=== PATIENT | male | born 1955 | race African-American/Black ===

== ENCOUNTER 2020-12-30 16:56 | Inpatient (IN) | payer OTHER ==
[~2020-12-30] VITALS: Ht 182.9 cm; Wt 113.4 kg
--- NOTE | ~2020-12-30 | P ---
[facility] [place] [address] PROCEDURE REPORT Name: VINCENT ANDERSON Room #: 441-P [facility] IN M.R.#: [id number] Admission: 12/30/20 Attend Phys: Cipriano Gorman MD Discharge: Date of : 57 Report #: [id number] THIS REPORT FOR: cc: Zenon Johnson MD, Ronald J. MD McElhinney, Christian C. MD ~ DOC #: [id number] cc: MD Alex Pérez MD DATE OF SERVICE: 01/02/2021 PROCEDURE PERFORMED: Colonoscopy with biopsies. HISTORY OF PRESENT ILLNESS: The patient is a 65-year-old male with a history of increasing rectal pain. He has had mild rectal pain for several years. This has become more severe. He has also noted some bright red blood per rectum. He underwent a colonoscopy apparently 2017 in a different facility. I do not have a copy of that report. 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 Also, history of prostate cancer treated with radiation in the past. This was several years ago. CT scan of the abdomen and pelvis on 12/30/2020 shows moderate to severe proctitis with mucosal edema of the rectum. Several mildly enlarged perirectal lymph nodes of developed probably reactive inflamed rectal neoplasm as possible, mild concentric urinary bladder wall thickening, also a heterogeneous low attenuating appearance near the uncinate process of the pancreas 2.0 cm in size. Plan is for colonoscopy. DESCRIPTION OF PROCEDURE: The risks and benefits of the procedure were explained to the patient, those risks including but not limited to bleeding, perforation and the risk of sedation. He understood these risks and gave informed consent. Sedation was given using propofol and ketamine per anesthesia. Next, a digital rectal exam was abnormal and that the rectal mucosa was firm and possible mass was noted. Next, using a standard Olympus colonoscope, the scope was placed in the patient's anus and advanced under direct vision to the cecum. The overall prep was good. The scope was advanced into the right colon, at which point a surgical anastomosis was noted. This was well healed and widely patent. The ascending, transverse, and descending colon were normal. In the sigmoid colon, a 4 mm sessile polyp was noted. This was removed with cold forceps, otherwise normal. In the distal rectum, a large ulcer/possible mass was noted. It was approximately 2-3 cm in diameter. In the sigmoid colon, also a 1 cm lipoma was noted. There was no active bleeding, but the tissue was friable. Multiple biopsies of the ulcer edge were obtained. The lesion was firm. It did not involve the dentate line. At this point, the scope was then withdrawn and the procedure terminated. The patient tolerated the procedure well. [address] [address] PROCEDURE REPORT Name: VINCENT ANDERSON Room #: 441-P [facility] IN .R.#: [id number] Admission: 12/30/20 Attend Phys: Cipriano Gorman MD Discharge: Date of : 57 Report #: [id number] IMPRESSION: 1. Large distal rectal mass/ulcer biopsies were obtained to rule out the possibility of malignancy. Also, consider solitary rectal ulcer syndrome. 2. Small colonic polyp. RECOMMENDATIONS: 1. Await biopsy results. 2. If biopsies are negative for malignancy, may consider rectal suppository with steroids or mesalamine in the near future. Thank you for allowing me to participate in his care. Alex Doran MD CCM/ROMINA By: [id number] Alex Doran MD /nt
[~2020-12-30 16:56] MED LIST: POTASSIUM20 PO
[2020-12-30 17:14] VITALS: BP 159/93
[2020-12-30] MEDS ORDERED: TADALAFIL20 MG PO (18:04)
[2020-12-30] MEDS ORDERED: VENLAFAXINE HCL75 MG PO (18:06)
[2020-12-30 18:17] LABS: ABSOLUTE NEUTROPHILS 7.2 thou/uL (1.4-8.2); BASOPHILS 0.6 % (0.0-2.0); EOSINOPHILS 0.5 % (0.0-3.0); LYMPHOCYTES 9.2 % (24.0-44.0); MCH 28.9 pg (26.0-34.0); MCHC 32.5 g/dL (28.0-37.0); MCV 88.8 fL (80.0-100.0); MONOCYTES 6.2 % (1.0-8.0); PLATELET COUNT 300 thou/uL (150-400); POLYS 83.5 % (36.0-66.0); RBC 4.16 mil/uL (4.50-6.00); RDW 15.1 % (10.5-14.5); WBC 8.6 thou/uL (4.0-11.0)
[2020-12-30 18:30] LABS: CALCIUM 8.5 mg/dL (8.5-10.1); CREATININE 0.9 mg/dL (0.7-1.3); POTASSIUM 3.4 mmol/L (3.5-5.1)
[2020-12-30 18:36] LABS: TOTAL BILIRUBIN 0.2 mg/dL (0.2-1.0)
[2020-12-30 19:10] LABS: URINE BILIRUBIN NEGATIVE (Negative); URINE BLOOD NEGATIVE (Negative); URINE CLARITY CLEAR; URINE COLOR YELLOW; URINE GLUCOSE-RANDOM* NEGATIVE (Negative); URINE KETONES TRACE (Negative); URINE LEUKOCYTES-REFLEX NEGATIVE (Negative); URINE NITRITE-REFLEX NEGATIVE (Negative); URINE PROTEIN (DIPSTICK) TRACE (Negative); URINE SPECIFIC GRAVITY 1.025 (1.005-1.035); URINE UROBILINOGEN 0.2 E.U./dl (0.2-1.0)
[2020-12-30 21:53] VITALS: BP 163/79
[2020-12-30 23:40] VITALS: BP 147/74
[2020-12-30 23:45] VITALS: BP 145/92
--- NOTE | 2020-12-31 00:18 | NUR ---
PT ADMITTED TO THE UNIT AT 2350. PT IS A/O X4 AND IS UP AD CHIQUITA. ROOM AIR. VSS. AFEBRILE. C/O PAIN TO RECTUM. PRN PAIN MEDICATION GIVEN DIRECTED. ADMISSION COMPLETED. PT EDUCATED ON USE OF CALL LIGHT. IS PLEASANT AND COOPERATIVE. WILL CONTINUE TO [facility].
[2020-12-31 04:10] VITALS: BP 142/89
[2020-12-31 07:30] VITALS: BP 123/73
--- NOTE | 2020-12-31 09:55 | NUR ---
Assumed care of pt at 0700. Pt a&ox4. C/o pain in rectal area. Prn pain medications administered. Diet changed to soft/fiber restricted. Call light within reach. Pt calls appropriately. Will continue to monitor.
[2020-12-31 16:00] VITALS: BP 127/84
[2020-12-31 20:00] VITALS: BP 130/83
--- NOTE | 2021-01-01 04:00 | NUR ---
PT A/O X4 AND IS UP AD CHIQUITA. C/O PAIN TO RECTUM. PRN PAIN MEDICATION GIVEN. FEBRILE. PRN TYLENOL GIVEN DIRECTED. AT THIS TIME PT IS AFEBRILE AND IS LYING IN HIS BED AND APPEARS TO BE SLEEPING WITH EYES CLOSED. MEDICATIONS GIVEN PER MAR. CALL LIGHT IS WITHIN REACH.
[2021-01-01 07:25] VITALS: BP 133/88
--- NOTE | 2021-01-01 09:26 | NUR ---
Assumed pt care this am. Pt is alert & oriented x4. Pt has iv site on l hand. pt is up ad lisandro and has bathroom priviledge. Pt is on clear liquid diet and will be NPO at midnight for colonoscopy tomorrow. Pt is on room air. Pt rated pain 7/10 on colon and groin area. Given pain medication as per pt request. No c/o of nausea and vomiting this am. No fever noted. Pt on the bed watching tv, bed on the lowest position, side rails up, call light within reach. Will continue to monitor pt. Follow poc.
[2021-01-01 15:45] VITALS: BP 143/90
[2021-01-01 19:06] VITALS: BP 141/93
[2021-01-01 22:18] VITALS: BP 141/93
--- NOTE | 2021-01-02 02:04 | NUR ---
UPON SHIFT ASSESSMENT, PT AOX4. PT REPORTS 7/10 RECTAL PAIN. PT RECEIVING PRN PO NORCO Q4HR WITH PRN PO APAP Q4HR AND PRN IV MORPHINE Q2HR AVAILABLE. PT DENIES SOB WHILE ON ROOM AIR. PT REPORTS ANXIETY RELATED TO PROCEDURE ON SATURDAY, REVIEWED HOME MEDICATIONS WITH PT. ONCALL DRYWALL TAPER HELPER NOTIFIED, EMAR UPDATED. PT TOLERATING PO INTAKE OF FLUIDS AND CLEAR LIQUID DIET WITHOUT ISSUE, REMAINS NPO AT MIDNIGHT. PT WITHOUT NAUSEA OR EMESIS. PT AMBULATING INDEPENDENTLY IN ROOM AND TO BATHROOM, RESTING IN BED OTHERWISE. FREQUENT REPOSITIONING ENCOURAGED WHILE IN BED, PT NOTED TO SHIFT INDEPENDENTLY. PT REPORTS NUMBNESS IN LLE, CAPILLARY REFILL LESS THAN 3SEC, PERIPHERAL PULSES PALPABLE IN ALL EXTREMITIES. PT ENCOURAGED TO NOTIFY STAFF FOR ALL NEEDS, CALL LIGHT WITHIN REACH, BED LOCKED IN LOWEST POSITION, FREQUENT MONITORING WILL CONTINUE.
[2021-01-02 04:45] VITALS: BP 144/95
[2021-01-02 07:42] VITALS: BP 143/90
--- NOTE | 2021-01-02 13:20 | NUR ---
ASSESSMENT: CM REVIEWED CHART AND MET WITH PATIENT AT THE BEDSIDE. PT IS ALERT AND ORIENTED X4. PT IS TO HAVE A COLONSCOPY TODAY. PT REPORTS THAT HE LIVES AT HOME WITH HIS IN AN APT. PT REPORTS HAVING ABOUT 14 STEPS WITH HANDRAILS TO THE APT. PT STATES HE IS FULLY INDEPENDENT WITH ADLS AND AMBULATION. PT REPORTS HE DOES HAVE A CANE AND WALKER HE USES IF NEEDED. PT STATES HE HAS NO HX OF HH OR SNF. CM DISCUSSED ROLE. PT DOES NOT ANTICIPATE HAVING ANY NEEDS FROM CM PRIOR TO DISCHARGE.
[2021-01-02 15:22] VITALS: BP 143/91
[2021-01-02 19:23] VITALS: BP 135/94
--- NOTE | 2021-01-02 19:30 | NUR ---
Patient alert and orinted x4, on room air, up ad lisandro, went down for coloscopy, could dischare after dinner if tolerated diet well, patient wanted to go home. After dinner patient isn't wanting to discharge and not feeling well. Would like to stay and see the physician tomorrow. Call light with in reach. Will continue to monitor.
--- NOTE | 2021-01-03 03:15 | NUR ---
PT IS A/O X4 AND IS UP AD CHIQUITA. VSS AFEBRILE. DENIES C/O PAIN TO ABDOMEN THIS SHIFT BUT DOES C/O OF NAUSEA. OFFERED TO PT PRN NAUSEA MEDICATION. PT DECLINED. C/O SORE THROAT FOLLOWING PROCEDURE DURING THE DAY. NOTIFIED MANAGER OF CUSTOMER BILLING. ORDERS GIVEN. MEDICATIONS GIVEN PER SEP. CALL LIGHT IS WITHIN REACH. CALLS OUT APPROPRIATELY. WILL CONTINUE TO MONITOR.
[2021-01-03 04:25] VITALS: BP 150/96
[2021-01-03 08:11] VITALS: BP 134/87
[2021-01-03] MEDS ORDERED: COLACE100 MG PO (09:21)
[2021-01-03] MEDS ORDERED: ULTRAM50 MG PO (09:21)
[2021-01-03 10:30] VITALS: BP 134/87
--- NOTE | 2021-01-03 11:25 | NUR ---
RN went over all discharge paper work and education, all questions answered at this time, IV out, and will be wheeled out in wheelchair.
--- NOTE | 2021-01-03 13:11 | NUR ---
ON-GOING ASSESSMENT: CM REVIEWED CHART. PT HAS ORDERS TO DISCHARGE HOME TODAY. PT HAS NO NEEDS FROM CM.
--- NOTE | 2021-01-06 19:07 | PATH ---
[facility] [place] [address] PATHOLOGY RPT PROCEDURE Name: VIC SALDIVAR Rere Room #: 441-P [facility] IN .R.#: [id number] Admission: 12/30/20 Date of : 57 Discharge: 01/03/21 Report #: [id number] Path Case #: [id number] [facility] Accession Number: [id number] . 01 Material submitted: . PART A: sigmoid colon - SIGMOID COLON POLYP PART B: rectum - RECTAL ULCER . 01 Clinical history: . COLONOSCOPY PELVIC PAIN,RECTAL BLEEDING ACUTE PROCTITIS,ABD PAIN . 02 Diagnosis: A. Polyp, sigmoid colon polyp, endoscopic biopsy: - Tubular adenoma admixed with hyperplastic changes. - Negative for high-grade dysplasia. . B. 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 (IUV:pit; 01/06/2021) QTP 01/06/2021 1537 Local . 02 Comment: Properly controlled immunohistochemical stains are performed on block B1. The tumor shows granular reactivity with synaptophysin, and no reactivity with chromogranin as well as CK20. CD45 shows membranous reactivity within the lymphocytes amongst the other fragments with chronic inflammation. Ki-67 shows markedly high proliferative activity of approximately 70% within the tumor cells. 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 . Dr. Ann Patiño has seen tax representative slides of this case and concurs with the diagnosis. Findings of this case are communicated to Dr. Gui Doran in the afternoon of 01/05/2021 and 01/06/2021. (IUV:pit; 01/06/2021) . 02 Electronically signed: . Nicole Rodriguez MD, Pathologist NPI- [id number] . 01 Gross description: . A. The specimen is received in formalin, labeled "Vic Saldivar, sigmoid colon polyp". Received are three segments of pale guerrero tissue ranging in size from 0.1-0.4 cm in maximum dimensions. The specimen is submitted entirely in [place] [address] PATHOLOGY RPT PROCEDURE Name: VIC SALDIVAR Rere Room #: 441-P [facility] IN M.R.#: [id number] Admission: 12/30/20 Date of : 57 Discharge: 01/03/21 Report #: [id number] Path Case #: [id number] . B. The specimen is received in formalin, labeled "Vic Saldivar, rectal ulcer biopsy". Received are multiple segments of pale guerrero tissue ranging in size from 0.1-0.4 cm in maximum dimensions. The specimen is submitted entirely in cassette B1. (CAA; 01/04/2021) QAC/QAC 01/04/2021 1317 Local . 02 Pathologist provided ICD-10: C75.9, C7A.8, D12.5, K62.6 . 02 CPT . 994485, [id number], [id number], [id number], [id number] Specimen Comment: A courtesy copy of this report has been sent to [phone], [phone]- Specimen Comment: [phone], Specimen Comment: Report sent to , DR MCBRIDE / DR LEON Performed at: [address] [facility], [place] [id number] MD Den Palacios MD Phone: [phone] Performed at: [address] [id number] MD Nicole Rodriguez MD Phone: [phone]
== END 2021-01-03 13:22 | disposition home or self-care (01) | DRG 394 ==
LOC: ER 16:56 → 4S 20:16 → EROBS 20:16 → 4S 23:32
PROVIDERS: Nurse Practitioner Family; ADMIT Hospitalist; ATTEND Hospitalist
PROC: 0DBN8ZZ Excision of Sigmoid Colon, Via Natural or Artificial Opening Endoscopic (ICD-10-PCS; principal; 2021-01-02)
PROC: 0DBP8ZX Excision of Rectum, Via Natural or Artificial Opening Endoscopic, Diagnostic (ICD-10-PCS; 2021-01-02)
DX: K62.6 Ulcer of anus and rectum (principal); K62.5 Hemorrhage of anus and rectum; E44.1 Mild protein-calorie malnutrition; R65.10 Systemic inflammatory response syndrome (SIRS) of non-infectious origin without acute organ dysfunction; K62.89 Other specified diseases of anus and rectum; G47.33 Obstructive sleep apnea (adult) (pediatric); K59.00 Constipation, unspecified; E66.9 Obesity, unspecified; D12.5 Benign neoplasm of sigmoid colon; I10 Essential (primary) hypertension; Z85.46 Personal history of malignant neoplasm of prostate; Z85.89 Personal history of malignant neoplasm of other organs and systems; Z90.49 Acquired absence of other specified parts of digestive tract; Z79.899 Other long term (current) drug therapy; Z88.8 Allergy status to other drugs, medicaments and biological substances; Z87.891 Personal history of nicotine dependence; Z68.33 Body mass index [BMI] 33.0-33.9, adult
CPT/HCPCS: 10195; 62110; 62900; 70005

== ENCOUNTER 2021-03-15 09:07 | Emergency (ER) | payer MEDICARE ==
[~2021-03-15] VITALS: Ht 182.9 cm; Wt 109.8 kg
[~2021-03-15 09:07] MED LIST changes: +COLACE100 MG PO; +TADALAFIL20 MG PO; +ULTRAM50 MG PO; +VENLAFAXINE HCL75 MG PO
[2021-03-15 10:07] LABS: HEMATOCRIT 36.3 % (42.0-52.0); HEMOGLOBIN 11.5 gm/dL (14.0-18.0); MCH 27.8 pg (26.0-34.0); MCHC 31.7 g/dL (28.0-37.0); MCV 87.8 fL (80.0-100.0); PLATELET COUNT 386 thou/uL (150-400); RBC 4.13 mil/uL (4.50-6.00); RDW 16.8 % (10.5-14.5); WBC 7.2 thou/uL (4.0-11.0)
[2021-03-15 10:13] LABS: URINE BILIRUBIN NEGATIVE (Negative); URINE BLOOD NEGATIVE (Negative); URINE CLARITY CLEAR; URINE COLOR YELLOW; URINE GLUCOSE-RANDOM* NEGATIVE (Negative); URINE KETONES NEGATIVE (Negative); URINE LEUKOCYTES-REFLEX NEGATIVE (Negative); URINE NITRITE-REFLEX NEGATIVE (Negative); URINE PROTEIN (DIPSTICK) NEGATIVE (Negative); URINE SPECIFIC GRAVITY 1.015 (1.005-1.035); URINE UROBILINOGEN 0.2 E.U./dl (0.2-1.0)
[2021-03-15 10:19] LABS: CALCIUM 8.6 mg/dL (8.5-10.1); CREATININE 0.9 mg/dL (0.7-1.3); POTASSIUM 4.4 mmol/L (3.5-5.1)
[2021-03-15 10:23] LABS: ALBUMIN 3.3 g/dL (3.4-5.0); TOTAL BILIRUBIN 0.2 mg/dL (0.2-1.0)
[2021-03-15 10:28] LABS: ABSOLUTE NEUTROPHILS 4.9 thou/uL (1.4-8.2)
[2021-03-15 10:29] LABS: ANISOCYTOSIS 1+; PLATELET ESTIMATE NORMAL
[2021-03-15 11:30] VITALS: BP 129/90
== END 2021-03-15 11:30 | disposition home or self-care (01) ==
LOC: ER 09:07
PROVIDERS: Emergency Medicine
DX: R10.813 Right lower quadrant abdominal tenderness (principal); R10.814 Left lower quadrant abdominal tenderness; Z88.6 Allergy status to analgesic agent; Z88.8 Allergy status to other drugs, medicaments and biological substances; Z90.89 Acquired absence of other organs